=== PATIENT | male | born 1960 | race Caucasian/White ===

== ENCOUNTER 2018-05-19 12:59 | Emergency (ER) | payer BC ==
[2018-05-19 13:06] VITALS: BP 137/93
--- NOTE | 2018-05-19 14:15 | ER Document Report ---
HPI - HPI Patient complains to provider of: Foreign body in ear Onset: Just prior to arrival Onset/Duration: Sudden Quality of pain: Achy Pain Level: 1 Context: Patient states that he was using a communication device in which the ear bud came off in his left ear canal. Patient with retained foreign body in the left ear canal. Exacerbated by: Denies Relieved by: Denies Similar symptoms previously: No Recently seen / treated by doctor: No - ROS ROS below otherwise negative: Yes Systems Reviewed and Negative: Yes All other systems reviewed and negative - EENT EENT: REPORTS: Ear Pain Past Medical History - General Information source: Patient - Social History Smoking Status: Never Smoker Frequency of alcohol use: None Drug Abuse: None Lives with: Family Family History: Reviewed & Not Pertinent Patient has suicidal ideation: No Patient has homicidal ideation: No Pulmonary Medical History: Reports: Hx Asthma Renal/ Medical History: Denies: Hx Peritoneal Dialysis Surgical Hx: Negative Vertical Provider Document - CONSTITUTIONAL Agree With Documented VS: Yes Exam Limitations: No Limitations General Appearance: WD/WN, No Apparent Distress - INFECTION CONTROL TRAVEL OUTSIDE OF THE [place] IN LAST 30 DAYS: No - HEENT HEENT: Atraumatic, Normocephalic Notes: Visible foreign body to left external auditory canal - NECK Neck: Normal Inspection - RESPIRATORY Respiratory: No Respiratory Distress - BACK Back: Normal Inspection - MUSCULOSKELETAL/EXTREMETIES Musculoskeletal/Extremeties: MAEW - NEURO Level of Consciousness: Awake, Alert, Appropriate Motor/Sensory: No Motor Deficit - DERM Integumentary: Warm, Dry, No Rash Course - Re-evaluation Re-evalutation: 05/19/18 14:15 Foreign body removed from left external auditory canal with use of alligator forceps. Patient tolerated well. Normal left TM, no trauma noted to left external auditory canal. - Vital Signs Vital signs: Temp Pulse Resp BP Pulse Ox 98.3 F 73 16 137/93 H 97 05/19/18 13:05 05/19/18 13:05 05/19/18 13:05 05/19/18 13:05 05/19/18 13:05 Discharge - Discharge Clinical Impression: Foreign body in ear Qualifiers: Encounter type: initial encounter Laterality: left Qualified Code(s): T16.2XXA - Foreign body in left ear, initial encounter Condition: Stable Disposition: HOME, SELF-CARE Instructions: Foreign Object in the Ear ([facility]) Additional Instructions: Return immediately for any new or worsening symptoms Referrals: ROBERT FREEDMAN MD [Primary Care Provider] - Follow up as needed
== END 2018-05-19 14:22 | disposition home or self-care (01) ==
LOC: ER 12:59
DX: T16.2XXA Foreign body in left ear, initial encounter (principal); X58.XXXA Exposure to other specified factors, initial encounter
CPT/HCPCS: 99282